=== PATIENT | male | born 1980 | race Caucasian/White ===

== ENCOUNTER 2023-03-02 06:15 | Day surgery (SDC) | payer OTHER ==
--- NOTE | 2023-02-24 09:58 | NUR ---
PHONE PRE-ADMIT COMPLETED.
[~2023-03-02] VITALS: Ht 177.8 cm; Wt 86.4 kg
[~2023-03-02 06:15] MED LIST: ACID REDUCER20 MG PO; ADVIL200 MG PO; PRILOSEC OTC20 MG PO; ZESTRIL20 MG PO
[2023-03-02 07:17] VITALS: BP 129/84
--- NOTE | 2023-03-02 10:11 | NUR ---
03/02/23 [place]1 Julita Garcia 0935-PATIENT ARRIVED TO PACU ON 6L MASK RR EVEN. ST HEART RHYTHM 104. PATIENT REACTIVE TO VERBAL STIMULI EYES CLOSED MOVING HEAD MUMBLING NOT FOLLOWING COMMANDS. UMBILICUS DRESSING CDI ICE APPLIED. 0940-PATIENT AROUSING FOLLOWING COMMANDS OPENING EYES REPORTS "CAN'T BREATHE FEELS TIGHT" EXPIRATORY WHEEZES HEARD. RN AUSCULTATED LUNGS AND EXP/INSP WHEEZES HEARD. NEW ORDER RECEIVED FROM JABIER CUEVAS TO GIVE DUONEB TREATMENT. 6L MASK 95% PATIENT ORIENTED TO PACU. ENCOURAGED TO TAKE SLOW DEEP BREATHES. PATIENT ENCOURAGED TO COUGH AND HAS WEAK NONPRODUCTIVE COUGH 0942-DUONEB BREATHING TREATMENT STARTED ON 6L MASK RR 18. BP CUFF READJUSTED DIASTOLIC IS ABOVE 110. 0946-PATIENT RESTING WTIH EYES CLOSED AROUSES EASILY REPORTS "FEEL LIKE I CAN BREATHE A LITTLE BETTER" 6L MASK RR EVEN 16.
[2023-03-02 10:28] VITALS: BP 133/83
--- NOTE | 2023-03-02 10:31 | NUR ---
PT BACK TO DS FROM PACU ALERT AND AWAKE, REPORTS PAIN 4/10 "AND STARTING TO INCREASE" JELLO, CRACKERS AND WATER GIVE PT TOLERATES WELL. CALL LIGHT PLACED WITHIN REACH, WARM BLANKETS PLACED ON PT.
[2023-03-02 11:25] VITALS: BP 122/80
--- NOTE | 2023-03-02 11:57 | NUR ---
1120 PT AMBULATED TO BATHROOM WITH MINIMAL ASSIST. REPORTS PAIN IS BETTER, HE WAS ABLE TO VOID 200ML OF BRIGHT YELLOW URINE. HE AMBULATED BACK TO HIS ROOM AND REPORTS READINESS TO GO HOME HE DRESSED HIMSELF.
--- NOTE | 2023-03-02 13:34 | OR ---
[facility] [address], [place] [address] Signed DATE OF OPERATION: 03/02/2023 SURGEON: Jono Riggins MD PREOPERATIVE DIAGNOSIS: Incarcerated umbilical hernia (15 mm). POSTOPERATIVE DIAGNOSIS: Incarcerated umbilical hernia (15 mm). PROCEDURE: Primary umbilical herniorrhaphy with intra-abdominal Ventralex mesh (6.4 cm). ESTIMATED BLOOD LOSS: None. INDICATIONS: Myron is a 43-year-old gentleman with a history of smoking. 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 The last several years, he has had a painful bulge in tenderness at his umbilicus. He is also worried about an area on the lateral edge of his left rectus muscle cephalad to the level of the umbilicus. He said it has become a daily issue for him at work. It is interfering with his ability to maintain his employment. 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 He was going to discuss that with his primary care provider because he is having some numbness in that right arm. He was asked to see me specifically for his umbilical hernia as a general surgeon. In the office, he clearly has an incarcerated tender umbilical hernia. Skin is a little thin. There are no local signs or symptoms of infection. I gave him our brochure on hernias. We looked at it page by page. We reviewed the difference between a primary suture repair and a mesh repair. He understands expected intraop and postop course. He knows that allow this to heal for at least a couple of months before he has unlimited activities. Otherwise, he should be careful about lifting over 20 pounds for a month and 50 pounds the 2nd month. There is risk to the surgery including, but not limited to bleeding, infection, scarring, change in contour of the skin as well as recurrent hernias, chronic pain, and infection of the mesh requiring removal. He had expressed understanding and wished to proceed. DESCRIPTION OF PROCEDURE: I met with Myron and his brother, Peng in our preop area. We all agreed on the umbilicus and we marked it appropriately. After this, Myron was taken into the operating room and placed in the supine position under general endotracheal tube Electronically Signed By: JONO RIGGINS MD 03/02/23 1334 PATIENT NAME: MYRON BUTT OPERATIVE REPORT DATE OF : 80 REPORT #: [id number] PHYSICIAN: JONO RIGGINS MD PCP: NO PRIMARY CARE PHYSICIAN REPORT IS CONFIDENTIAL AND NOT TO BE RELEASED WITHOUT AUTHORIZATION [facility] [address], [place] [address] Signed anesthesia. He was given preoperative antibiotics along with subcutaneous heparin. SCDs were utilized. He was then prepped and draped in the usual sterile fashion. Once he was pharmacologically paralyzed, it took some effort but we reduced the incarcerated omentum. We utilized our standard infraumbilical transverse incision and carried this around the umbilicus bluntly and with the cautery. We the hernia defect from his hernia sac with the help of the cautery. The fascial defect was about 15 mm in diameter. We therefore chose our 6.4 cm round Ventralex mesh. We placed that inside the abdomen, flushed against the posterior abdominal wall. We used a running #1 Prolene suture starting in the left side of the fascial defect and we went through the tab on the mesh several times to help hold it in place. We went back across the fascial defect and tied our knot down lateral on the left side of the umbilicus. We cut the mesh, flushed with the abdominal wall. Local anesthetic was injected into his abdominal wall as well as the subcutaneous tissues. The wound was irrigated and suctioned out until clear. We brought the umbilical skin down to the midline fascia with an interrupted 2-0 PDS suture. The dermis was reapproximated with 3-0 Monocryl interrupted subcuticular sutures. The skin edges were reapproximated with a running 5-0 fast absorbing plain gut suture. Dry gauze and tape were then applied. Myron was then awakened from his anesthesia, extubated in the OR, and taken to the recovery room in stable condition. Jono Riggins MD ALB/MODL /[id number] cc: Dr. Nice, [place], [place] Copies: ~ Electronically Signed By: JONO RIGGINS MD 03/02/23 1334 PATIENT NAME: MYRON BUTT OPERATIVE REPORT DATE OF : 80 REPORT #: [id number] PHYSICIAN: JONO RIGGINS MD PCP: NO PRIMARY CARE PHYSICIAN REPORT IS CONFIDENTIAL AND NOT TO BE RELEASED WITHOUT AUTHORIZATION
--- NOTE | 2023-03-02 16:27 | EKG ---
[facility] [address] [facility] [place] [address] Signed Normal sinus rhythm Nonspecific T wave abnormality Abnormal ECG No previous ECGs available Confirmed by FLACO PENG MD ([id number]) on 03/02/2023 4:27:15 PM Electronically Signed By: FLACO PENG MD 03/02/23 1627 PATIENT NAME: MYRON BUTT Electrocardiogram DATE OF : 80 PHYSICIAN: FLACO PENG MD REPORT #: [id number] REPORT IS CONFIDENTIAL AND NOT TO BE RELEASED WITHOUT AUTHORIZATION
== END 2023-03-02 11:40 | disposition home or self-care (01) ==
LOC: DS 06:15
PROVIDERS: ATTEND Colon & Rectal Surgery
PROC: 0WUF0JZ Supplement Abdominal Wall with Synthetic Substitute, Open Approach (ICD-10-PCS; principal; 2023-03-02 08:15)
DX: K42.0 Umbilical hernia with obstruction, without gangrene (principal); M62.08 Separation of muscle (nontraumatic), other site; I10 Essential (primary) hypertension
CPT/HCPCS: 00750; C1781; J0131; J0690; J1100; J1644; J1885; J2250; J2405; J2704; J2795; J3010; J3475; J7121